=== PATIENT | male | born 1995 | race Caucasian/White ===

== ENCOUNTER 2018-08-07 00:10 | Emergency (ER) | payer BC, OTHER ==
[~2018-08-07] VITALS: Ht 175.3 cm; Wt 158.8 kg
--- OUTSIDE RECORDS SUMMARY | 2018-08-07 00:16 | XMS REPORT ---
Author Author Sixto Reed Organization [facility] Spec Address [address] [place] [address] Care Team Providers Care Manager Social Work Name Role Phone Sixto Reed Unavailable PROBLEMS Unknown Problems ALLERGIES Substance Reaction Event Type Date Status Lortab swelling Drug Allergy Jan, Active ENCOUNTERS Encounter Location Date Diagnosis [facility] Community Relations Assistant [address] [place] [address] Jan, Acute right-sided low back pain without sciatica M54.5 [facility] Community Relations Assistant [address] [place] [address] Apr, [facility] Community Relations Assistant [address] [place] [address] Mar, Muscle strain T14.8 and Morbid (severe) obesity due to excess calories E66.01 [facility] Community Relations Assistant [address] [place] [address] Nov, [facility] Community Relations Assistant [address] [place] [address] Jan, [facility] Community Relations Assistant [address] [place] [address] Jan, Cough 786.2 and URI (upper respiratory infection) 465.9 [facility] Community Relations Assistant [address] [place] [address] Dec, Edema 782.3 and Erythema 695.9 [facility] Community Relations Assistant [address] [place] [address] Dec, [facility] Community Relations Assistant [address] [place] [address] Dec, Allergic rhinitis due to allergen 477.9 and Pulled hamstring 843.8 IMMUNIZATIONS No Known Immunizations SOCIAL HISTORY Never Assessed REASON FOR VISIT Back Pain PLAN OF CARE Activity Details Follow Up prn Reason: VITAL SIGNS Temperature 98.3 degrees Fahrenheit 2018-02-05 Weight 366.4 lbs 2018-02-05 Height 69 in 2018-02-05 BMI 54.10 kg/m2 2018-02-05 Oximetry 98 2018-02-05 Blood pressure systolic 130 mm Hg 2018-02-05 Blood pressure diastolic 80 mm Hg 2018-02-05 MEDICATIONS Medication Instructions Dosage Frequency Start Date End Date Duration Status cyclobenzaprine 10 mg orally 3 times a day 1 tab(s) 8h Jan, 15 days Active Mobic 15 mg orally once a day 1 tab(s) 24h Jan, 30 day(s) Active RESULTS No Results PROCEDURES No Known procedures INSTRUCTIONS MEDICATIONS ADMINISTERED No Known Medications MEDICAL (GENERAL) HISTORY Type Description Date Surgical History Tonsillectomy 2003
--- OUTSIDE RECORDS SUMMARY | 2018-08-07 00:16 | XMS REPORT ---
Author Ninoska Coates [facility] eClinicalWorks Address Unknown Phone Unavailable Care Team Providers Care Visual Effects Artist Name Role Phone Ninoska Vega CP Unavailable Allergies No Known Allergies Problems No Known Problems Medications Medication Code System Code Instructions Start Date End Date Status Dosage ProAir HFA [facility] [address] 90 INHALE 2 PUFFS DAILY DIRECTED. Results No Known Results Summary Purpose eClinicalWorks Submission
--- OUTSIDE RECORDS SUMMARY | 2018-08-07 00:16 | XMS REPORT ---
Author Author Moreno George Organization [employer] Address Unknown Phone Unavailable Care Team Providers Care Hop Strainer Name Role Phone Moreno George Unavailable Allergies, Adverse Reactions, Alerts Substance Reaction Event Type Lortab swelling Drug Allergy Problems Problem Type Condition ICD-9 Code Onset Dates Condition Status Assessment Erythema 695.9 Active Assessment Edema 782.3 Active Medications Medication Code System Code Instructions Start Date End Date Status Dosage Fluticasone Propionate NDC 85516 50 mcg/inh intranasally once a day Jan 11, 2014 Active 2 spray(s) ibuprofen NDC 76799 200 mg orally as needed Active 4 tabs meloxicam NDC 27772 15 mg orally once a day Jan 07, 2014 Active 1 tab(s) Procedures Procedure Coding System Code Date Office/Outpatient Visit-Est CPT-4 69189 Jan 19, 2014 Vital Signs Date/Time: Jan 19, 2014 Temperature 97 F Blood Pressure Diastolic 78 mm Hg Blood Pressure Systolic 118 mm Hg BMI 50.71 Index Height 69 in Weight 343.4 lbs Pulse 72 /min Results No Known Results Summary Purpose eClinicalWorks Submission
--- OUTSIDE RECORDS SUMMARY | 2018-08-07 00:16 | XMS REPORT | Continuity of Care Document ---
Author Author [facility] Organization [facility] Address Unknown Phone Unavailable Care Team Providers Care Hotel Concierge Name Role Phone ERIKA QUESADA M.D. PCP Insurance Providers Payer Name Policy Number Subscriber Name Relationship Anselmo [employer] [place] [id number] Laurie Abbott 03 Mother [employer] [id number] Annamarie Abbott 01 Self / Same As Patient Chief Complaint and Reason for Visit Chief Complaint Rash Reason for Visit Yeast dermatitis of penis Problems Medical Problems Problem Onset Date Status Yeast dermatitis of penis Unknown Active Medications Medication Dose Route Sig Days/Qty Instructions Order Date Discontinued Date Status [Unknown Antibiotic] 02/04/14 Active Nystatin (Topical) 1 Saira EX THREE TIMES A DAY For yeast infection 28 Days 02/04/14 Active Social History Social History Problem Response Recorded Date/Time Smoking Status Former smoker 02/04/2014 3:50am Query Response Start Date Stop Date Smoking Status Former smoker Hospital Discharge Instructions No hospital discharge instructions. Plan of Care Discharge Date 02/04/14 4:37am Disposition 01 HOME, SELF-CARE Condition at Discharge Stable Prescriptions See Medications Section Referrals ERIKA QUESADA M.D. Additional Instructions/Education you are being treated for a yeast infection return for any concerns it may take several days of treatment before improvement is noted Functional Status No functional status results. Allergies, Adverse Reactions, Alerts Allergen Type Severity Reaction Status Last Updated Hydrocodone Allergy Mild Active 02/04/14 Immunizations No immunization records. Vital Signs Acute Vital Signs Vital Response Date/Time Blood Pressure 137/81 mm Hg Blood Pressure Mean 99 mm Hg Temperature (Fahrenheit) 98.2 degrees F (96.0 - 99.9) Temperature (Calculated Celsius) 36.80607 degrees C Temperature Source Oral Pulse Pulse Rate: ED 97 bpm Respiratory Rate 18 breaths per minute (10 - 20) Height (Feet) 5 ft Height (Inches) 9 in. Weight (Pounds) 340 lbs Results Test Source Date Result Interp. Ref. Range Comments Bedside Glucose February 04, 2014 4:33am 95 mg/dL N 70-120 0 Procedures No known history of procedures. Encounters Encounter Location Date/Time Departed Emergency Room [facility] 02/04/14 3:49am Recent Diagnosis
--- OUTSIDE RECORDS SUMMARY | 2018-08-07 00:16 | XMS REPORT | Continuity of Care Document ---
Author Author [facility] Organization [facility] Address [address] [place] [address] Phone Unavailable Care Team Providers Care Roads Supervisor Name Role Phone Physician, No Family PCP Unavailable Insurance Providers Payer Name Policy Number Subscriber Name Relationship [facility] [id number] Laurie Abbott Advance Directives Directive Response Recorded Date/Time Do You Have A Living Will? No 09/20/16 1:46am Do You Have a DPOA? No 09/20/16 1:46am Problems Active Problems Medical Problem Onset Date Status Chest pain Unknown Acute Medications No medication information available. Social History Social History Problem Response Recorded Date/Time History of Street Drugs? No 09/20/2016 1:50am Hx Alcohol Use Y Occasionally 09/20/2016 1:50am Query Response Start Date Stop Date Smoking status: Never smoker Hospital Discharge Instructions No hospital discharge instructions. Plan of Care Discharge Date 09/20/16 2:55am Disposition HOME, ROUTINE DIS/ASST LIVING Condition at Discharge Stable & Improved Prescriptions See Medication Section Functional Status No functional status results. Allergies, Adverse Reactions, Alerts Allergen Type Severity Reaction Status Last Updated Hydrocodone Allergy Unknown Active 09/20/16 Immunizations No immunization records. Vital Signs Acute Vital Signs Vital Response Date/Time Height (Feet) 5 ft 09/20/2016 1:50am Height (Inches) 9.00 inches 09/20/2016 1:50am Temperature (Fahrenheit) 97.9 degrees F (97.6 - 99.5) 09/20/2016 2:55am Pulse Pulse Rate 82 bpm (60 - 100) 09/20/2016 2:55am Respiratory Rate 16 bpm (10 - 24) 09/20/2016 2:55am Oxygen Saturation O2 Sat by Pulse Oximetry 97 % (93 - 100) 09/20/2016 2:55am Blood Pressure 123/81 mm Hg 09/20/2016 2:55am Blood Pressure Mean 121 mm Hg 09/20/2016 1:50am Height 5 ft 9 in Weight 349 lb Body Mass Index 51.0 kg/m^2 Results No known relevant diagnostic tests, laboratory data and/or discharge summary. Procedures Procedure Status Date Provider(s) X-ray of chest, PA and lateral views Active 09/20/16 Lenny Romero MD Encounters Encounter Location Arrival/Admit Date Discharge/Depart Date Attending Provider Departed Emergency Room [facility] 09/20/16 1:43am 09/20/16 2:55am Lenny Romero MD Recent Diagnosis Chest pain
--- OUTSIDE RECORDS SUMMARY | 2018-08-07 00:16 | XMS REPORT | Continuity of Care Document ---
Author Author [facility] Address Unknown Phone Unavailable Support Name Relationship Address Phone ERIKA QUESADA M.D. Caregiver [address] [place] [address] AMADOU COBIAN M.D. Caregiver [facility] [address] [facility] [address] [place] [address] GUILLAUME ABBOTT Next Of Kin [address] [place] [address] Insurance Providers Guarantor Annamarie Abbott Address [address] [place] [address] Payer [employer] [place] Policy Number [id number] Subscriber's Name Laurie Abbott Relationship 03 Mother Group Number [id number] Group Name [id number] Effective Date 17 Advance Directives No advance directive information available. Chief Complaint and Reason for Visit Chief Complaint Back Pain Reason for Visit Low back strain Problems Medical Problem Onset Date Status Yeast dermatitis of penis Unknown Acute Past Problems Medical Problem Onset Date Status Low back strain Unknown Acute Medications Current Home Medications Medication Dose Units Route Directions Days Qty Instructions Start Date Cyclobenzaprine Hcl (Flexeril 10 Mg) 10 Mg Tab 10 Mg Oral Three Times A Day for Back Pain 14 Tablet 01/30/18 Naproxen 500 Mg Tab 500 Mg Oral Twice A Day for Pain 14 Tablet 01/30/18 Oxycodone/Acetaminophen (Percocet) 5/325 Tab 1 Tab Oral Every 6 Hours as needed for Pain 12 Tablet 01/30/18 Past Home Medications Medication Directions Ordered Status Nystatin (Topical) (Nystatin) 100,000 Mg Cre, 1 Saira External Three Times A Day for Yeast Infection 02/04/14 Discontinued Unknown Antibiotic , Discontinued Social History Social History Problem Response Recorded Date/Time Onset Date Status Smoking Status Former smoker 01/30/2018 8:06pm Not Applicable Not Applicable Smoking Status Start Date Stop Date Former smoker Hospital Discharge Instructions No hospital discharge instruction information available. Plan of Care Discharge Date 01/30/18 9:24pm Disposition 01 HOME, SELF-CARE Condition at Discharge Improved/Stable Instructions/Education Provided Low Back Strain (ED) Acute Low Back Pain (ED) Prescriptions See Medication Section Additional Instructions/Education follow up with your pcp next week Functional Status No functional status information available. Allergies, Adverse Reactions, Alerts Allergen Type Severity Reaction Status Last Updated Hydrocodone ([id number]) Allergy Mild Active 02/04/14 Immunizations No immunization information available. Vital Signs Acute Vital Signs Vital Response Date/Time Blood Pressure 141/55 mm Hg 01/30/2018 9:13pm Blood Pressure Mean 83 mm Hg 01/30/2018 9:13pm Temperature (Fahrenheit) 98.4 degrees F (96.0 - 99.9) 01/30/2018 7:58pm Temperature (Calculated Celsius) 36.76431 degrees C 01/30/2018 7:58pm Temperature Source Oral 01/30/2018 7:58pm Pulse Pulse Rate: ED 76 bpm 01/30/2018 9:13pm Respiratory Rate 18 breaths per minute (10 - 20) 01/30/2018 9:13pm Height (Feet) 5 ft 01/30/2018 7:58pm Height (Inches) 9.0 in. 01/30/2018 7:58pm Weight (Pounds) 350.0 lbs 01/30/2018 7:58pm Height 5 ft 9 in 01/30/2018 7:58pm Weight 350 lb 01/30/2018 7:58pm Body Mass Index 51.7 kg/m^2 01/30/2018 7:58pm Ambulatory Vital Signs Vital Response Date/Time Height 5 ft 9 in 05/30/2017 2:58pm Weight 364 lbs 05/30/2017 2:58pm Blood Pressure 132/82 mm Hg 05/30/2017 2:58pm Pulse Rate 80 bpm 05/30/2017 2:58pm Body Surface Area 2.93 m2 05/30/2017 2:58pm Body Mass Index 53.8 kg/m2 05/30/2017 2:58pm Pulse Oximetry Pulse Oximetry 05/30/2017 2:58pm Results No relevant diagnostic test, laboratory data and/or discharge summary informatio n available. Procedures No procedure information available. Encounters Encounter Location Arrival/Admit Date Discharge/Depart Date Attending Provider Departed Emergency Room [facility] 01/30/18 7:58pm 01/30/18 9:24pm AMADOU COBIAN M.D. Registered Practice [facility] 05/30/17 2:45pm BREA LOPEZ M.D. Office Visit BREA LOPEZ 05/30/17 2:45pm BREA LOPEZ M.D. Recent Diagnosis
--- OUTSIDE RECORDS SUMMARY | 2018-08-07 00:17 | XMS REPORT ---
Author Ninoska Coates Organization [employer] Address Unknown Phone Unavailable Care Team Providers Care Hardboard Panel Printer Name Role Phone Ninoska Vega CP Unavailable Allergies, Adverse Reactions, Alerts Substance Reaction Event Type Lortab swelling Drug Allergy Problems Problem Type Condition ICD-9 Code Onset Dates Condition Status Assessment URI (upper respiratory infection) 465.9 Active Assessment Cough 786.2 Active Medications Medication Code System Code Instructions Start Date End Date Status Dosage Albuterol HFA pro air inhaler NDC 0 8.5gm 2 puffs daily Jan 31, 2014 Active as directed ibuprofen NDC 47947 200 mg orally as needed Active 4 tabs Bactrim DS NDC 4204 800 mg-160 mg orally 2 times a day Jan 31, 2014 Active 1 tab(s) Fluticasone Propionate NDC 50692 50 mcg/inh intranasally once a day Jan 11, 2014 Active 2 spray(s) Procedures Procedure Coding System Code Date Office/Outpatient Visit-Est CPT-4 75951 Jan 31, 2014 X-Ray Chest CPT-4 64915 Jan 31, 2014 Vital Signs Date/Time: Jan 31, 2014 Temperature 97.8 F Blood Pressure Diastolic 80 mm Hg Blood Pressure Systolic 122 mm Hg BMI 51.41 Index Height 69 in Weight 348.2 lbs Pulse 80 /min Results No Known Results Summary Purpose eClinicalWorks Submission
--- OUTSIDE RECORDS SUMMARY | 2018-08-07 00:17 | XMS REPORT ---
Author Ninoska Coates Organization [employer] Address Unknown Phone Unavailable Care Team Providers Care Personnel Interviewer Name Role Phone Ninoska Vega CP Unavailable Allergies, Adverse Reactions, Alerts Substance Reaction Event Type Lortab swelling Drug Allergy Problems Problem Type Condition ICD-9 Code Onset Dates Condition Status Assessment Pulled hamstring 843.9 Active Assessment Allergic rhinitis due to allergen 477.9 Active Medications Medication Code System Code Instructions Start Date End Date Status Dosage ibuprofen NDC 34513 200 mg orally as needed Active 4 tabs meloxicam NDC 42716 15 mg orally once a day Jan 07, 2014 Active 1 tab(s) Fluticasone Propionate NDC 81992 50 mcg/inh intranasally once a day Jan 07, 2014 Active 2 spray(s) Procedures Procedure Coding System Code Date Office/Outpatient Visit-Est CPT-4 72791 Jan 07, 2014 Vital Signs Date/Time: Jan 07, 2014 Pulse 92 /min Blood Pressure Diastolic 80 mm Hg Blood Pressure Systolic 112 mm Hg BMI 50.74 Index Height 69 in Weight 343.6 lbs Results No Known Results Summary Purpose eClinicalWorks Submission
--- OUTSIDE RECORDS SUMMARY | 2018-08-07 00:17 | XMS REPORT | Continuity of Care Document ---
Author Organization Unknown Address Unknown Allergies Active Description Code Type Severity Reaction Onset Reported/Identified Relationship to Patient Clinical Status Yes acetaminophen acetaminophen Drug Allergy Unknown unknown 04/09/2014 Yes hydrocodone hydrocodone Drug Allergy Unknown unknown 04/09/2014 Yes hydrocodone [id number] Drug Allergy Unknown N/A 09/20/2016 Medications There is no data. Problems Date Dx Coded Attending Type Code Diagnosis Diagnosed By 04/21/2011 Other 682.4 CELLULITIS OF HAND 04/21/2011 Other 729.5 PAIN IN LIMB 02/04/2014 Other 112.2 CANDIDIAS UROGENITAL NEC 02/04/2014 Other 782.1 NONSPECIF SKIN ERUPT NEC 09/20/2016 Nick QUESADA, Lenny Bello Other R07.89 OTHER CHEST PAIN 01/30/2018 AMADOU COBIAN M.D. Other M54.89 OTHER DORSALGIA 01/30/2018 AMADOU COBIAN M.D. Other S39.012A STRAIN OF MUSCLE, FASCIA AND TENDON OF LOWER BACK, INIT 01/30/2018 AMADOU COBIAN M.D. Other X58.XXXA EXPOSURE TO OTHER SPECIFIED FACTORS, INITIAL ENCOUNTER Procedures There is no data. Results There is no data. Encounters ACCT No. Visit Date/Time Discharge Status Pt. Type Provider Facility Loc./Unit Complaint [id number] 01/30/2018 19:58:00 01/30/2018 21:24:00 DIS Emergency AMADOU COBIAN M.D. ER [id number] 02/04/2014 03:49:00 Document Registration [id number] 04/21/2011 00:41:00 Document Registration [id number] 04/09/2014 00:29:00 04/09/2014 01:56:00 DIS Emergency Papo QUESADA, [facility] [place] [id number] 09/20/2016 01:43:00 09/20/2016 02:55:00 DIS Emergency Nick QUESADA, [facility] ER "CHEST PAIN"
--- OUTSIDE RECORDS SUMMARY | 2018-08-07 00:17 | XMS REPORT ---
Author Author Ninoska Vega [facility] eClinicalWorks Address Unknown Phone Unavailable Care Team Providers Care Winch Driver Name Role Phone Ninoska Vega CP Unavailable Allergies No Known Allergies Problems No Known Problems Medications Medication Code System Code Instructions Start Date End Date Status Dosage Bactrim DS NDC 4204 800 mg-160 mg orally 2 times a day Jan 31, 2014 Active 1 tab(s) ibuprofen NDC 18845 200 mg orally as needed Active 4 tabs Albuterol HFA pro air inhaler NDC 0 8.5gm 2 puffs daily Jan 31, 2014 Active as directed Fluticasone Propionate NDC 08043 50 mcg/inh intranasally once a day Jan 11, 2014 Active 2 spray(s) Results No Known Results Summary Purpose eClinicalWorks Submission
--- OUTSIDE RECORDS SUMMARY | 2018-08-07 00:17 | XMS REPORT ---
Author Author Ninoska Vega Organization [employer] Address Unknown Phone Unavailable Care Team Providers Care Frozen Yogurt Maker Name Role Phone Ninoska Vega Unavailable Allergies No Known Allergies Problems No Known Problems Medications Medication Code System Code Instructions Start Date End Date Status Dosage Fluticasone Propionate [facility] 16914 50 mcg/inh intranasally once a day Jan 11, 2014 Active 2 spray(s) Results No Known Results Summary Purpose eClinicalWorks Submission
--- NOTE | 2018-08-07 00:44 | ED Chest Pain ---
General Chief Complaint: Chest Pain Stated Complaint: CHEST PAIN;LIGHT HEADED;SOB Nursing Triage Note: pt states chest heaviness started 2 days ago, pt with hx of the same and has been told it is stress and anxiety Nursing Sepsis Screen: No Definite Risk History of Present Illness Date Seen by Provider: Aug 07, 2018 Time Seen by Provider: 00:23 This is a 23-year-old male who complains of chest pain waxing and waning over the last 2 days. This is nonexertional. It is left-sided, he says that sometimes it moves from the upper part of the chest to the lower part of the chest but then sometimes it will move back up to the top of the chest, "like gas pain". No difficulty breathing although he states that he usually will get "winded" when he walks around, he attributes this to being overweight, it is not new in the last few days although as he has been walking around a lot at work he has noticed it more frequently than usual. No pleuritic pain. No history of blood clots. No hormonal therapy. No cough or fever or hemoptysis. He did drive to [employer] for work earlier in the week, he said that this is about a 2-1/[address] He does not smoke but he does chew tobacco. He does not use cocaine. No family hx of premature CAD or CVA. Allergies and Home Medications Patient Home Medication List Home Medication List Reviewed: Yes Review of Systems Review of Systems Constitutional: no symptoms reported EENTM: No Symptoms Reported Respiratory: See HPI Cardiovascular: See HPI Gastrointestinal: No Symptoms Reported Genitourinary: No Symptoms Reported Musculoskeletal: no symptoms reported Skin: no symptoms reported Psychiatric/Neurological: No Symptoms Reported Endocrine: No Symptoms Reported Hematologic/Lymphatic: No Symptoms Reported All Other Systems Reviewed Negative Unless Noted: Yes Past Ufgtasi-Dzactp-Cyqxqi Hx Past Med/Social Hx: Reviewed Nursing Past Med/Soc Hx Patient Social History Alcohol Use: Occasionally Uses Recreational Drug Use: No Type Used: Smokeless Tobacco 2nd Hand Smoke Exposure: No Recent Foreign Travel: No Contact w/Someone Who Travel: No Recent Infectious Disease Expo: No Recent Hopitalizations: No Physical Abuse: No Sexual Abuse: No Mistreated: No Fear: No Seasonal Allergies Seasonal Allergies: No Past Medical History Surgeries: No Respiratory: No Cardiac: No Neurological: No Genitourinary: No Gastrointestinal: No Musculoskeletal: No Endocrine: No HEENT: No Cancer: No Psychosocial: No Integumentary: No Blood Disorders: No Physical Exam Vital Signs Vital Signs - First Documented 08/07/18 08/07/18 00:26 01:43 Temp 96.9 Pulse 93 Resp 16 B/P (MAP) 141/78 (99) Pulse Ox 96 O2 Delivery Room Air Capillary Refill : Less Than 3 Seconds Height, Weight, BMI Height: 5'9.00" Weight: 350lbs. oz. 158.082202ly; BMI Method:Stated General Appearance: No Apparent Distress (no visible discomfort) HEENT: Moist Mucous Membranes Neck: Supple Respiratory: Normal Breath Sounds; No Rales, No Rhonci, No Wheezing Cardiovascular: Regular Rate, Rhythm, No Murmur, Normal Peripheral Pulses; No Friction Rub, No JVD Gastrointestinal: Non Tender, Soft Extremity: No Calf Tenderness Neurologic/Psychiatric: Alert, Oriented x3, No Motor/Sensory Deficits, Normal Mood/Affect Skin: Warm/Dry Progress/Results/Core Measures Results/Orders Lab Results Laboratory Tests Test 08/07/18 00:40 Range/Units White Blood Count 9.0 4.3-11.0 10^3/uL Red Blood Count 5.14 4.35-5.85 10^6/uL Hemoglobin 15.4 13.3-17.7 G/DL Hematocrit 44 40-54 % Mean Corpuscular Volume 86 80-99 FL Mean Corpuscular Hemoglobin 30 25-34 PG Mean Corpuscular Hemoglobin Concent 35 32-36 G/DL Red Cell Distribution Width 12.6 10.0-14.5 % Platelet Count 256 130-400 10^3/uL Mean Platelet Volume 9.7 7.4-10.4 FL Sodium Level 141 135-145 MMOL/L Potassium Level 3.8 3.6-5.0 MMOL/L Chloride Level 103 98-107 MMOL/L Carbon Dioxide Level 25 21-32 MMOL/L Anion Gap 13 5-14 MMOL/L Blood Urea Nitrogen 12 7-18 MG/DL Creatinine 0.88 0.60-1.30 MG/DL Estimat Glomerular Filtration Rate > 60 BUN/Creatinine Ratio 14 Glucose Level 122 H 70-105 MG/DL Calcium Level 8.9 8.5-10.1 MG/DL Corrected Calcium 9.1 8.5-10.1 MG/DL Total Bilirubin 0.3 0.1-1.0 MG/DL Aspartate Amino Transf (AST/SGOT) 24 5-34 U/L Alanine Aminotransferase (ALT/SGPT) 35 0-55 U/L Alkaline Phosphatase 87 40-136 U/L Troponin T < 6 <=15 NG/L Pro-B-Type Natriuretic Peptide 11.3 <75.0 PG/ML Total Protein 6.8 6.4-8.2 GM/DL Albumin 3.8 3.2-4.5 GM/DL My Orders Orders - JUDITH RING T DO Ekg Tracing (08/07/18 00:22) Chest 1 View Ap/Pa Only (08/07/18 00:33) Troponin T (08/07/18 00:33) Probnp Fs (08/07/18 00:33) Cbc No Diff (08/07/18 00:33) Comprehensive Metabolic Panel (08/07/18 00:33) Vital Signs/I&O 08/07/18 08/07/18 00:26 01:43 Temp 96.9 Pulse 93 87 Resp 16 B/P (MAP) 141/78 (99) 128/77 (94) Pulse Ox 96 98 O2 Delivery Room Air Room Air Blood Pressure Mean: 99 Progress Progress Note : Progress Note Patient is having 2 days of left sided pain that is intermittently higher in the chest and intermittently lower in the chest and sometimes resolves. This is not migratory pain suggestive of aortic dissection. This is nonexertional. He has some exercise intolerance at baseline that he has noticed more recently in the last few days but this is not a reason for his visit and is only mentioned on review of systems. He is PERC negative. He is well-appearing. ECG does not have ischemic change. We will check labs out of an abundance of caution including a CBC given his exercise intolerance, we can obtain a single troponin but he will not require serial troponins to rule out acute myocardial infarction, a troponin elevation could be seen in pericarditis for example, a diagnosis of which would be more common in this patient although his symptoms again are atypical. Myocarditis is not likely as patient is well-appearing, there are no signs of heart failure clinically. If remainder of workup is unremarkable in the emergency Department he will be discharged home, he has been instructed to follow-up with a primary care physician as soon as possible, preferably within the week. He also will return for any new or worsening symptoms. EKG : Comment 00 21: Sinus rhythm rate of 88. Normal axis. There is a wandering baseline which obscures interpretation however there do not appear to be T-wave inversions or ST changes. Diagnostic Imaging Diagonstic Imaging: Xray Plain Films/CT/US/NM/MRI: chest Comments EP interpretation: Airway is midline, no obvious bony or soft tissue abnormalities, cardiomediastinal silhouette is within normal limits, the left costophrenic angle is partially obscured although there does not appear to be in effusion on either side, there are no pneumothoraces, no obvious focal infiltrate, interstitium appears somewhat prominent Reviewed: Reviewed by Me Departure Impression Primary Impression: Chest pain Qualified Codes: R07.2 - Precordial pain Disposition: HOME, SELF-CARE Condition: Stable Departure-Patient Inst. Referrals: NO,LOCAL PHYSICIAN (PCP) Primary Care Physician Patient Instructions: Chest Pain That Is Not Caused by the Heart (DC) JUDITH RING DO Aug 07, 2018 00:44
[2018-08-07 00:46] LABS: HEMOGLOBIN 15.4 G/DL (13.3-17.7); RED CELL DISTRIBUTION WIDTH 12.6 % (10.0-14.5)
[2018-08-07 00:47] LABS: MEAN PLATELET VOLUME 9.7 FL (7.4-10.4)
[2018-08-07 01:16] LABS: POTASSIUM 3.8 MMOL/L (3.6-5.0); SODIUM 141 MMOL/L (135-145)
[2018-08-07 01:18] LABS: ALANINE AMINOTRANSFERASE 35 U/L (0-55); ALBUMIN 3.8 GM/DL (3.2-4.5); ALKALINE PHOSPHATASE 87 U/L (40-136); BILIRUBIN,TOTAL 0.3 MG/DL (0.1-1.0); BUN/CREATININE RATIO 14; CALCIUM 8.9 MG/DL (8.5-10.1); CARBON DIOXIDE 25 MMOL/L (21-32); CHLORIDE 103 MMOL/L (98-107); CREATININE SERUM 0.88 MG/DL (0.60-1.30); GFR ESTIMATED > 60; GLUCOSE 122 MG/DL (70-105); TOTAL PROTEIN 6.8 GM/DL (6.4-8.2)
[2018-08-07 01:43] VITALS: BP 128/77
--- NOTE | 2018-08-07 07:00 | Diagnostic Imaging Report ---
Clinical indication: Patient with chest heaviness that started 2 days ago. Exam: Portable chest x-ray upright view. Comparisons: None. Findings: Of note, the lateral aspect of the left costophrenic angle is not completely imaged on this exam. Lungs/pleura: Lungs are clear. There is no pneumothorax. There is no pleural effusion. Mediastinum: Unremarkable. Pulmonary vasculature: Unremarkable. Heart: Unremarkable. Bones/extrathoracic soft tissue: Unremarkable. Impression: There is no radiographic evidence of acute cardiopulmonary process. Dictated by: Dictated on workstation # [id number]
== END 2018-08-07 01:41 | disposition home or self-care (01) ==
LOC: ER FS 00:12
DX: R07.89 Other chest pain (principal); F17.220 Nicotine dependence, chewing tobacco, uncomplicated
CPT/HCPCS: 36415; 71045; 80053; 83880; 84484; 85027; 93005

== ENCOUNTER 2018-08-13 00:56 | Emergency (ER) | payer BC ==
[~2018-08-13] VITALS: Ht 175.3 cm; Wt 157.9 kg
--- NOTE | 2018-08-13 01:00 | NUR ---
PATIENT TO ROOM C/O CHEST PAIN. BROUGHT BACK TO ROOM 1
--- NOTE | 2018-08-13 01:12 | NUR ---
DR NO TO ROOM TO SEE PATIENT
[2018-08-13] MEDS ORDERED: ANTACID SUSP 30 ML UDC (MYLANTA) ONE (01:18)
[2018-08-13] MEDS ORDERED: FAMOTIDINE 20 MG (PEPCID) TABLET ONE (01:18)
[2018-08-13] MEDS ORDERED: LIDOCAINE 2% VISCOUS 15 ML UDC ONE (01:18)
[2018-08-13 01:50] VITALS: BP 146/82
--- NOTE | 2018-08-13 01:53 | ED General ---
General Stated Complaint: CHEST PAIN;SOB Source of Information: Patient Exam Limitations: No Limitations History of Present Illness Date Seen by Provider: Aug 13, 2018 Time Seen by Provider: 01:00 Initial Comments Patient is a 23-year-old male presents with episodic chest pain. Patient has had intermittent daily chest pain for the past 2 weeks. Patient was evaluated in the emergency department 5 days ago for the same. Patient had EKG thymin imaging which were negative. Left upper quadrant pain worse after eating, alcohol and caffeine. Instructed to follow up with primary care physician but has not yet had a chance to establish with local doctor. This evening's pain is sharp abdominal pain rating to left shoulder. No nausea vomiting sweats, bloody stools dark tarry stools. Medication therapies taken prior to the arrival. Timing/Duration: Other (2 week) Allergies and Home Medications Patient Home Medication List Home Medication List Reviewed: Yes Review of Systems Review of Systems Constitutional: no symptoms reported EENTM: no symptoms reported Respiratory: no symptoms reported Cardiovascular: no symptoms reported Gastrointestinal: LUQ Genitourinary: no symptoms reported Musculoskeletal: no symptoms reported Skin: no symptoms reported Psychiatric/Neurological: No Symptoms Reported Hematologic/Lymphatic: No Symptoms Reported Immunological/Allergic: no symptoms reported Past Avawysr-Cxpkmg-Snaofq Hx Past Med/Social Hx: Reviewed Nursing Past Med/Soc Hx Patient Social History Type Used: Smokeless Tobacco 2nd Hand Smoke Exposure: No Recent Foreign Travel: No Contact w/Someone Who Travel: No Recent Hopitalizations: No Seasonal Allergies Seasonal Allergies: No Past Medical History Surgeries: No Respiratory: No Cardiac: No Neurological: No Genitourinary: No Gastrointestinal: No Musculoskeletal: No Endocrine: No HEENT: No Cancer: No Psychosocial: No Integumentary: No Blood Disorders: No Physical Exam Vital Signs Capillary Refill : Height, Weight, BMI Height: 5'9.00" Weight: 350lbs. oz. 158.551685yp; BMI Method:Stated General Appearance: No Apparent Distress, Anxious Eyes: Bilateral Eye Normal Inspection, Bilateral Eye PERRL HEENT: PERRL/EOMI, Normal ENT Inspection Neck: Normal Inspection, Non Tender Respiratory: Chest Non Tender, Lungs Clear Cardiovascular: Regular Rate, Rhythm, No Edema Gastrointestinal: Non Tender, Soft, Other Extremity: Normal Capillary Refill, Normal Inspection, No Calf Tenderness Focused Exam Sepsis Stage: Ruled Out Progress/Results/Core Measures Suspected Sepsis SIRS Temperature: Pulse: Respiratory Rate: Blood Pressure / Mean: Results/Orders My Orders Orders - EDNA NO DO Famotidine Tablet (Pepcid Tablet) (08/13/18 01:18) Lidocaine 2% Viscous 15 Ml (Xylocaine Vi (08/13/18 01:18) Antacid Suspension (Mylanta Suspension (08/13/18 01:18) Vital Signs/I&O Capillary Refill : Departure Communication (Admissions) EKG: Sinus rhythm, No acute st-t wave changes. Nonexertional chest pain worse with eating. Symptoms resolved with Pepcid and GI cocktail. EKG reassuring. Recommended supportive care and PCP follow-up. Impression Primary Impression: Esophagitis, acute Disposition: HOME, SELF-CARE Condition: Improved Departure-Patient Inst. Decision time for Depature: 01:53 Add. Discharge Instructions: Take 40 mg of Prilosec daily. Avoid spicy foods alcohol caffeine and eating 3 hours prior to bed time. Follow-up with local primary care physician in 2 weeks for reevaluation. EDNA NO DO Aug 13, 2018 01:53
--- OUTSIDE RECORDS SUMMARY | 2018-08-13 06:46 | XMS REPORT | Continuity of Care Document ---
Author Organization Unknown Address Unknown Allergies Active Description Code Type Severity Reaction Onset Reported/Identified Relationship to Patient Clinical Status Yes acetaminophen acetaminophen Drug Allergy Unknown unknown 04/09/2014 Yes hydrocodone hydrocodone Drug Allergy Unknown unknown 04/09/2014 Yes hydrocodone [id number] Drug Allergy Unknown N/A 09/20/2016 Medications There [...] Status Pt. Type Provider Facility Loc./Unit Complaint [id number] 01/30/2018 19:58:00 01/30/2018 21:24:00 DIS Emergency AMADOU COBIAN M.D. ER [id number] 02/04/2014 03:49:00 Document Registration [id number] 04/21/2011 00:41:00 Document Registration [id number] 04/09/2014 00:29:00 04/09/2014 01:56:00 DIS Emergency Papo QUESADA, [facility] [place] [id number] 09/20/2016 01:43:00 09/20/2016 02:55:00 DIS Emergency Nick QUESADA, [facility] ER "CHEST PAIN"
== END 2018-08-13 01:50 | disposition home or self-care (01) ==
LOC: EDUNIT# 00:56 → ER FS 00:58
DX: K20.9 Esophagitis, unspecified (principal)
CPT/HCPCS: 93005